=== PATIENT | female | born 1975 | race African-American/Black ===

== ENCOUNTER 2023-12-06 20:16 | Emergency (ER) | payer OTHER ==
[~2023-12-06] VITALS: Ht 157.5 cm; Wt 69.0 kg
[2023-12-06 20:18] VITALS: O2SAT 98
[2023-12-06] MEDS: METHOCARBAMOL 750MG TABLET PO STA (20:42)
[2023-12-06] MEDS: ACETAMINOPHEN 325MG TABLET PO ONE (20:45)
[2023-12-06] MEDS: IBUPROFEN 400MG TABLET PO ONE (20:45)
[2023-12-06] MEDS ORDERED: TOPUD PO (23:00)
[2023-12-06] MEDS ORDERED: ONDANSETRON HCL 4MG/2ML INJ IV ONE (23:00)
[2023-12-06] MEDS ORDERED: IBUP-2028 MT (23:00)
[2023-12-06] MEDS ORDERED: PROPOFOL 200MG/20ML VIAL IV ONE (23:00)
[2023-12-06] MEDS ORDERED: METH-653 MT (23:00)
[2023-12-06] MEDS ORDERED: LIDO1ADH23 TP (23:00)
[2023-12-06 23:07] VITALS: BP 134/76; PULSE 96; RESP 17; TEMP 98.1
== END 2023-12-06 23:12 | disposition home or self-care (01) ==
LOC: ER 22:27
DX: S13.4XXA Sprain of ligaments of cervical spine, initial encounter (principal); F41.9 Anxiety disorder, unspecified; V49.59XA Passenger injured in collision with other motor vehicles in traffic accident, initial encounter; Y93.89 Activity, other specified; Y92.89 Other specified places as the place of occurrence of the external cause; Y99.8 Other external cause status
CPT/HCPCS: 71045; 72040; 99284

== ENCOUNTER 2024-04-17 16:30 | Emergency (ER) | payer MEDICAID ==
[~2024-04-17] VITALS: Ht 157.5 cm; Wt 67.0 kg
[~2024-04-17 16:30] MED LIST: IBUP-2028 MT; LIDO1ADH23 TP; METH-653 MT; TOPUD PO
[2024-04-17 16:34] VITALS: BP 134/88; PULSE 98; RESP 20; TEMP 98.1; O2SAT 99
[2024-04-17 17:32] LABS: DIFFERENTIAL COMMENT 0; EOSINOPHILS % 0.6 % (0.0-5.0); HEMATOCRIT. 35.4 % (36.0-48.0); HEMOGLOBIN. 11.4 g/dL (12.0-16.0); MEAN CORPUSCULAR HEMOGLOBIN 24.7 pg (28.0-32.0); MEAN CORPUSCULAR HGB CONC 32.2 g/dL (31.0-37.0); MEAN CORPUSCULAR VOLUME 76.9 fL (81.0-99.0); MEAN PLATELET VOLUME 6.2 fl (7.4-10.4); MONOCYTES % 3.9 % (2.0-8.0); NEUTROPHILS % 69.5 % (40.0-76.0); PLATELET 507 x1000/uL (130-400); RED CELL DISTRIBUTION WIDTH 19.5 % (11.6-14.6); WHITE BLOOD COUNT 6.9 x1000/uL (4.5-11.0)
[2024-04-17 17:40] LABS: CHLORIDE 108 mEq/L (98-107); POTASSIUM 3.3 mEq/L (3.5-5.1); SODIUM 140 mEq/L (136-145)
[2024-04-17 17:41] LABS: CARBON DIOXIDE 22 mEq/L (21-32)
[2024-04-17 17:42] LABS: CALCIUM 9.6 mg/dL (8.7-10.4)
[2024-04-17 17:44] LABS: HCG SCREEN NEGATIVE
[2024-04-17 17:46] LABS: CREATININE 0.8 mg/dL (0.6-1.0)
[2024-04-17 17:47] LABS: GLUCOSE 111 mg/dL (70-105)
[2024-04-17 17:52] LABS: UREA NITROGEN BLOOD < 5 mg/dL (9-23)
== END 2024-04-17 20:18 | disposition left against medical advice (07) ==
LOC: ER 16:30
DX: R10.30 Lower abdominal pain, unspecified (principal); F41.9 Anxiety disorder, unspecified; I10 Essential (primary) hypertension; Z98.890 Other specified postprocedural states
CPT/HCPCS: 36415; 80048; 84703; 85025; 99283